=== PATIENT | male | born 1940 | race Caucasian/White ===

== ENCOUNTER 2021-12-29 06:10 | Day surgery (SDC) | payer MEDICARE, OTHER ==
[2021-12-28 13:30] LABS: BASOPHILS % (AUTO) 0.3 % (0-1); EOSINOPHILS # (AUTO) 0.3 X10'3 (0-0.9); EOSINOPHILS % (AUTO) 3.7 % (0-6); HEMATOCRIT 38.7 % (42.0-52.0); LYMPHOCYTES # (AUTO) 2.5 X10'3 (1.1-4.8); LYMPHOCYTES % (AUTO) 28.5 % (21-51); MEAN CORPUSCULAR HEMOGLOBIN 30.5 PG (27.0-31.0); MEAN CORPUSCULAR HGB CONC 33.6 g/dL (33.0-36.5); MEAN PLATELET VOLUME 7.9 FL (7.4-10.4); MONOCYTES # (AUTO) 0.6 X10'3 (0-0.9); MONOCYTES % (AUTO) 7.2 % (2-12); NEUTROPHILS # (AUTO) 5.3 X10'3 (1.8-7.7); NEUTROPHILS % (AUTO) 60.3 % (42-75); PLATELET COUNT 177 X10'3 (140-440); RED BLOOD COUNT 4.26 X10'6 (4.70-6.10); RED CELL DISTRIBUTION WIDTH 13.8 % (11.5-14.5); WHITE BLOOD COUNT 8.8 X10'3 (4.5-11.0)
[2021-12-28 13:31] LABS: APTT 25 SECONDS (22-32)
[2021-12-28 13:33] LABS: ALBUMIN 4.1 G/DL (3.4-5.0); ANION GAP 7 (8-16); BLOOD UREA NITROGEN 22 MG/DL (7-18); BUN/CREATININE RATIO 21.4 (5.4-32.0); CHLORIDE 105 MMOL/L (99-107); CREATININE 1.03 MG/DL (0.60-1.10); GLUCOSE 98 MG/DL (70-104); POTASSIUM 3.5 MMOL/L (3.5-5.1); SODIUM 140 MMOL/L (135-145); TOTAL CARBON DIOXIDE 28.4 MMOL/L (24-32); eGFR 69 ML/MIN
[~2021-12-29] VITALS: Ht 175.3 cm; Wt 81.6 kg
[2021-12-29] VITALS (11 sets, daily range): BP systolic 117–158; BP diastolic 42–87
[2021-12-29] MEDS ORDERED: diphenhydrAMINE 25mg capsule PO PRN (06:35)
[2021-12-29] MEDS ORDERED: normal saline 1,000 ML IV SCH (06:35)
[2021-12-29] MEDS ORDERED: LORazepam 0.5 MG tablet PO PRN (06:35)
[2021-12-29] MEDS ORDERED: LOSA1TAB41 PO (07:00)
[2021-12-29] MEDS ORDERED: ATEN-54 PO (07:00)
[2021-12-29] MEDS ORDERED: MULT-1085 PO (07:00)
[2021-12-29] MEDS ORDERED: FINA5TAB11 PO (07:00)
[2021-12-29] MEDS ORDERED: AMLO10TA PO (07:00)
[2021-12-29] MEDS ORDERED: ROSU20TA2 PO (07:00)
[2021-12-29] MEDS ORDERED: FLO0.4C PO (07:00)
[2021-12-29] MEDS ORDERED: OMEP20CA16 PO (07:00)
[2021-12-29] MEDS ORDERED: ASPI-10 PO (07:00)
[2021-12-29] MEDS ORDERED: B COMPLEX (07:00)
[2021-12-29] MEDS ORDERED: nitroGLYCERIN-Tridil 50MG/D5W 250 ML IV ONE (07:22)
[2021-12-29] MEDS ORDERED: verapamil 2.5 mg/ml inj IV ONE (07:22)
[2021-12-29] MEDS ORDERED: fentaNYL/PF 50MCG/1 ML 2ML syringe ONE (07:22)
[2021-12-29] MEDS ORDERED: midazolam 1 mg/ML 2ml injection ONE (07:22)
[2021-12-29] MEDS ORDERED: iohexol 350MG/ML 100ml bottle IV ONE ×2 (07:23→08:59)
[2021-12-29] MEDS ORDERED: heparin 1,000unit/ml 10ml vial 10 ML ONE (07:23)
[2021-12-29] MEDS ORDERED: LIDOcaine 1% (10mg/ml) 2ml vial ONE ×2 (07:42→08:38)
[2021-12-29] MEDS ORDERED: LIDOcaine 1% 30ml preserv. free vial ONE (08:38)
[2021-12-29] MEDS ORDERED: normal saline 1000ml 1,000 ML IV SCH (10:05)
[2021-12-29 11:38] LABS: ISTAT HGB ART 11.9 g/dl (14.0-17.9); ISTAT Hct ART 35 %PCV (42-52); ISTAT O2 SATURATION ARTERIAL 98 % (95-98); ISTAT SOURCE VEN
[2021-12-29 11:38] LABS: ISTAT Hct MIX 37 %PCV (42-52); ISTAT O2 SATURATION MIX VENOUS 66 % (60-80); ISTAT SOURCE BLNK
== END 2021-12-29 14:00 | disposition home or self-care (01) ==
LOC: SSTAY O 06:10
PROVIDERS: ATTEND Internal Medicine Cardiovascular Disease
DX: R94.39 Abnormal result of other cardiovascular function study (principal); I25.10 Atherosclerotic heart disease of native coronary artery without angina pectoris; I35.0 Nonrheumatic aortic (valve) stenosis; I48.0 Paroxysmal atrial fibrillation; E78.5 Hyperlipidemia, unspecified; I10 Essential (primary) hypertension; F17.210 Nicotine dependence, cigarettes, uncomplicated; I49.5 Sick sinus syndrome; Z79.01 Long term (current) use of anticoagulants; Z79.899 Other long term (current) drug therapy; Z98.890 Other specified postprocedural states; Z96.652 Presence of left artificial knee joint; Z80.8 Family history of malignant neoplasm of other organs or systems; Z80.6 Family history of leukemia
CPT/HCPCS: 36415; 76937; 80048; 82803; 85014; 85025; 85610; 85730; 93005; 93460; 93567; 99152; 99153; A6258; C1751; C1758; C1769; C1894; J1644; J2250; J3010; J3490; J7030; Q0163; Q9967; A4620; A6402; A6449

== ENCOUNTER 2022-11-15 07:06 | Day surgery (SDC) | payer MEDICARE, OTHER ==
[2022-11-14 14:33] LABS: BASOPHILS % (AUTO) 0.4 % (0-1); EOSINOPHILS # (AUTO) 0.2 X10'3 (0-0.9); EOSINOPHILS % (AUTO) 2.7 % (0-6); HEMATOCRIT 37.9 % (42.0-52.0); HEMOGLOBIN 12.7 g/dl (14.0-17.9); LYMPHOCYTES # (AUTO) 1.9 X10'3 (1.1-4.8); LYMPHOCYTES % (AUTO) 22.8 % (21-51); MEAN CORPUSCULAR HEMOGLOBIN 30.8 PG (27.0-31.0); MEAN CORPUSCULAR HGB CONC 33.6 g/dL (33.0-36.5); MEAN CORPUSCULAR VOLUME 91.8 FL (78-98); MEAN PLATELET VOLUME 7.9 FL (7.4-10.4); MONOCYTES # (AUTO) 0.5 X10'3 (0-0.9); MONOCYTES % (AUTO) 5.8 % (2-12); NEUTROPHILS # (AUTO) 5.8 X10'3 (1.8-7.7); NEUTROPHILS % (AUTO) 68.3 % (42-75); PLATELET COUNT 162 X10'3 (140-440); RED BLOOD COUNT 4.12 X10'6 (4.70-6.10); WHITE BLOOD COUNT 8.5 X10'3 (4.5-11.0)
[2022-11-14 14:40] LABS: ALBUMIN 3.7 G/DL (3.4-5.0); ANION GAP 8 (8-16); BLOOD UREA NITROGEN 25 MG/DL (7-18); BUN/CREATININE RATIO 19.4 (10.0-20.0); CALCIUM 9.5 MG/DL (8.5-10.1); CHLORIDE 105 MMOL/L (99-107); CREATININE 1.29 MG/DL (0.60-1.10); GLUCOSE 148 MG/DL (70-104); POTASSIUM 3.7 MMOL/L (3.5-5.1); SODIUM 141 MMOL/L (135-145); eGFR 53 ML/MIN
[2022-11-14 14:42] LABS: PROTHROMBIN TIME 10.9 SECONDS (9.0-12.0)
[2022-11-15] VITALS (10 sets, daily range): BP systolic 146–159; BP diastolic 70–85; PULSE 54–66; RESP 12–18; TEMP 97.8; O2SAT 92–98
[~2022-11-15] VITALS: Ht 175.3 cm; Wt 80.4 kg
[~2022-11-15 07:06] MED LIST: AMI200T; APIX5TAB3 PO; ATEN-54 PO; B COMPLEX; FINA5TAB11 PO; FLO0.4C PO; FURO40TA4 PO; LOSA25TA41 PO; OMEP20CA16 PO; ROSU20TA2 PO
[2022-11-15] MEDS ORDERED: normal saline 1000ml 1,000 ML IV SCH (07:10)
[2022-11-15] MEDS ORDERED: LORazepam 0.5 MG tablet PO ONE (07:10)
[2022-11-15] MEDS ORDERED: diphenhydrAMINE 25mg capsule PO ONE (07:10)
[2022-11-15] MEDS ORDERED: MIDAZolam 1mg/ml 10ml vial IV ONE (07:10)
[2022-11-15] MEDS ORDERED: atropine 0.1mg/ml 10ml syringe IV ONE (07:10)
[2022-11-15] MEDS ORDERED: amiodarone 150mg/dext, iso-os 100 ML IV ONE (07:10)
[2022-11-15] MEDS ORDERED: morphine 10mg/ml inj. IV ONE (07:10)
[2022-11-15] MEDS ORDERED: FLO0.4C PO (07:11)
[2022-11-15] MEDS ORDERED: ATEN-27 PO (07:11)
== END 2022-11-15 09:45 | disposition home or self-care (01) ==
LOC: SSTAY O 07:06
PROVIDERS: ATTEND Internal Medicine Cardiovascular Disease
DX: I48.0 Paroxysmal atrial fibrillation (principal); I35.0 Nonrheumatic aortic (valve) stenosis; I11.0 Hypertensive heart disease with heart failure; I50.21 Acute systolic (congestive) heart failure; I47.1 Supraventricular tachycardia; I25.10 Atherosclerotic heart disease of native coronary artery without angina pectoris; I49.5 Sick sinus syndrome; I42.9 Cardiomyopathy, unspecified; E78.5 Hyperlipidemia, unspecified; N40.0 Benign prostatic hyperplasia without lower urinary tract symptoms; Z79.899 Other long term (current) drug therapy; Z79.01 Long term (current) use of anticoagulants; Z96.653 Presence of artificial knee joint, bilateral; Z98.890 Other specified postprocedural states; Z87.891 Personal history of nicotine dependence
CPT/HCPCS: 36415; 80048; 85025; 85610; 92960; 93005; J2250; J2274; J7030; Q0163; A4620

== ENCOUNTER 2023-03-08 11:05 | Outpatient (CLI) | payer MEDICARE, OTHER ==
[~2023-03-08 11:05] MED LIST changes: +ATEN-27 PO; -ATEN-54 PO; -B COMPLEX
[2023-03-08 11:39] LABS: BASOPHILS % (AUTO) 0.5 % (0-1); EOSINOPHILS # (AUTO) 0.2 X10'3 (0-0.9); EOSINOPHILS % (AUTO) 2.9 % (0-6); HEMATOCRIT 33.4 % (42.0-52.0); HEMOGLOBIN 11.2 g/dl (14.0-17.9); LYMPHOCYTES # (AUTO) 1.6 X10'3 (1.1-4.8); LYMPHOCYTES % (AUTO) 20.3 % (21-51); MEAN CORPUSCULAR HEMOGLOBIN 31.4 PG (27.0-31.0); MEAN CORPUSCULAR HGB CONC 33.7 g/dL (33.0-36.5); MEAN CORPUSCULAR VOLUME 93.2 FL (78-98); MEAN PLATELET VOLUME 7.8 FL (7.4-10.4); MONOCYTES # (AUTO) 0.5 X10'3 (0-0.9); MONOCYTES % (AUTO) 6.3 % (2-12); NEUTROPHILS # (AUTO) 5.5 X10'3 (1.8-7.7); PLATELET COUNT 195 X10'3 (140-440); RED BLOOD COUNT 3.58 X10'6 (4.70-6.10); RED CELL DISTRIBUTION WIDTH 15.3 % (11.5-14.5); WHITE BLOOD COUNT 7.9 X10'3 (4.5-11.0)
[2023-03-08 11:48] LABS: APTT 29 SECONDS (22-32); PROTHROMBIN TIME 10.5 SECONDS (9.0-12.0)
[2023-03-08 11:57] LABS: ALANINE AMINOTRANSFERASE 34 U/L (12-78); ALBUMIN 3.9 G/DL (3.4-5.0); ALBUMIN/GLOBULIN RATIO 1.2 (1.1-1.5); ALKALINE PHOSPHATASE 92 IU/L (46-116); ANION GAP 8 (8-16); ASPARTATE AMINO TRANSFERASE 25 U/L (10-37); BILIRUBIN,TOTAL 0.5 MG/DL (0.1-1.0); BLOOD UREA NITROGEN 26 MG/DL (7-18); BUN/CREATININE RATIO 20.5 (10.0-20.0); CALCIUM 9.6 MG/DL (8.5-10.1); CHLORIDE 105 MMOL/L (99-107); CREATININE 1.27 MG/DL (0.60-1.10); GLUCOSE 101 MG/DL (70-104); POTASSIUM 3.5 MMOL/L (3.5-5.1); PRO BRAIN NATRIURETIC PEPTIDE 184 PG/ML (0-450); SODIUM 138 MMOL/L (135-145); TOTAL CARBON DIOXIDE 25.4 MMOL/L (24-32); TOTAL PROTEIN 7.2 G/DL (6.4-8.2); eGFR 54 ML/MIN
[2023-03-08] MEDS ORDERED: IODIXANOL 320 MG/ML INFUS..BTL 100ML IV ONE (12:12)
== END 2023-03-08 23:59 | disposition home or self-care (01) ==
LOC: RAD 11:05
PROVIDERS: ATTEND Internal Medicine Cardiovascular Disease
DX: Z01.818 Encounter for other preprocedural examination (principal); I65.23 Occlusion and stenosis of bilateral carotid arteries; N40.0 Benign prostatic hyperplasia without lower urinary tract symptoms; N32.89 Other specified disorders of bladder; I70.0 Atherosclerosis of aorta; I77.4 Celiac artery compression syndrome; J92.9 Pleural plaque without asbestos; N62 Hypertrophy of breast; I35.0 Nonrheumatic aortic (valve) stenosis; Z87.891 Personal history of nicotine dependence; Z79.899 Other long term (current) drug therapy
CPT/HCPCS: 36415; 71046; 71275; 74175; 75572; 80053; 83880; 85025; 85610; 85730; 93880; 94010; 94727; 94729; J3490; Q9967

== ENCOUNTER 2023-04-13 05:58 | Inpatient (IN) | payer MEDICARE, OTHER ==
[2023-04-06 11:27] LABS: BASOPHILS # (AUTO) 0.1 X10'3 (0-0.2); BASOPHILS % (AUTO) 0.8 % (0-1); EOSINOPHILS # (AUTO) 0.2 X10'3 (0-0.9); EOSINOPHILS % (AUTO) 2.3 % (0-6); LYMPHOCYTES # (AUTO) 1.7 X10'3 (1.1-4.8); LYMPHOCYTES % (AUTO) 19.8 % (21-51); MEAN CORPUSCULAR HEMOGLOBIN 31.4 PG (27.0-31.0); MEAN CORPUSCULAR HGB CONC 33.3 g/dL (33.0-36.5); MEAN CORPUSCULAR VOLUME 94.3 FL (78-98); MEAN PLATELET VOLUME 7.8 FL (7.4-10.4); MONOCYTES # (AUTO) 0.6 X10'3 (0-0.9); MONOCYTES % (AUTO) 7.4 % (2-12); NEUTROPHILS # (AUTO) 5.8 X10'3 (1.8-7.7); NEUTROPHILS % (AUTO) 69.7 % (42-75); PRE OP HEMATOCRIT 36.2 % (42.0-52.0); PRE OP HEMOGLOBIN 12.1 g/dL (14.0-17.9); PRE OP PLATELET COUNT 185 X10'3 (140-440); PRE OP WHITE BLOOD COUNT 8.4 10'3 (4.8-10.8); RED BLOOD COUNT 3.84 X10'6 (4.70-6.10); RED CELL DISTRIBUTION WIDTH 13.8 % (11.5-14.5)
[2023-04-06 11:38] LABS: PRE OP PROTIME 10.7 SECONDS (9.0-12.0)
[2023-04-06 11:39] LABS: BILIRUBIN,URINE NEGATIVE (Neg); CLARITY,URINE CLEAR (Clear); COLOR,URINE YELLOW (Yellow); GLUCOSE, URINE NEGATIVE (Neg); KETONES,URINE NEGATIVE (Neg); LEUKOCYTE ESTERASE ,URINE NEGATIVE (Neg); NITRITES, URINE NEGATIVE (Neg); OCCULT BLOOD,URINE NEGATIVE (Neg); PH,URINE 5.5 (4.8-8.0); PROTEIN,URINE NEGATIVE (Neg); UROBILINOGEN,URINE 0.2 E.U/dL (0.2-1.0)
[2023-04-06 11:46] LABS: UA COLLECTION TYPE NON-SPECIFIED
[2023-04-06 11:47] LABS: ALBUMIN 3.6 G/DL (3.4-5.0); ALKALINE PHOSPHATASE 91 IU/L (46-116); BLOOD UREA NITROGEN 20 MG/DL (7-18); BUN/CREATININE RATIO 16.9 (10.0-20.0); CALCIUM 9.3 MG/DL (8.5-10.1); CHLORIDE 105 MMOL/L (99-107); CREATININE 1.18 MG/DL (0.60-1.10); PRE OP ALT 32 U/L (30-65); PRE OP ANION GAP 10 (8-16); PRE OP AST 23 U/L (10-37); PRE OP BILIRUB, TOTAL 0.4 MG/DL (0.0-1.0); PRE OP GLUCOSE 115 MG/DL (70-104); PRE OP POTASSIUM 3.5 MMOL/L (3.4-5.1); PRE OP SODIUM 140 MMOL/L (135-145); PRO BRAIN NATRIURETIC PEPTIDE 237 PG/ML (0-450); TOTAL CARBON DIOXIDE 25.5 MMOL/L (24-32); TOTAL PROTEIN 7.3 G/DL (6.4-8.2); eGFR 59 ML/MIN
[2023-04-13] VITALS (26 sets, daily range): BP systolic 86–160; BP diastolic 39–75; PULSE 59–71; RESP 11–19; TEMP 97.9–99; O2SAT 88–100
[~2023-04-13] VITALS: Ht 172.7 cm; Wt 82.1 kg
[~2023-04-13 05:58] MED LIST changes: -AMI200T; +AMI200T PO; +AMLO5TAB18 PO; +APIX2.5T PO; -APIX5TAB3 PO; -ATEN-27 PO; +DOCUMENT DATE & TIME OF BETA-BLOCKER PO ONE; +FERR325T28 PO; +FLUT16SP BOTHNARES; +KETO10DR3 EACHEYE; +LOSA100T58 PO; -LOSA25TA41 PO; +aspirin 325mg tablet PO ONE; +cefazolin 2gm/D5W 100mL 100 ML IV ONE; +famotidine 20mg tablet PO ONE; +ondansetron/PF 4mg/2ml inj IV ONE; +ringers solution, lacted 1,000 ML IV SCH; +vancomycin 1,500 MG in NS 300ml IV soln IV ONE
[2023-04-13] MEDS ORDERED: protamine sulfate 10mg/ml inj. ONE (06:49)
[2023-04-13] MEDS ORDERED: LIDOcaine 1% (10mg/ml) 2ml vial ONE ×2 (08:27→09:28)
[2023-04-13] MEDS ORDERED: protamine sulf. 10mg/ml inj. IV ONE (08:30)
[2023-04-13] MEDS ORDERED: LIDOcaine 1% 30ml preserv. free vial ONE ×2 (08:41→08:56)
[2023-04-13] MEDS ORDERED: iohexol 350MG/ML 100ml bottle IV ONE (08:41)
[2023-04-13] MEDS ORDERED: heparin 1,000 UNITS/NS 500ml 1,500 ML ONE (08:41)
[2023-04-13] MEDS ORDERED: fentaNYL/PF 50MCG/1 ML 2ML syringe ONE (08:55)
[2023-04-13] MEDS ORDERED: MIDAZolam 1 MG/ML 5ML VIAL ONE (08:56)
[2023-04-13] MEDS ORDERED: heparin 1,000unit/ml 10ml vial 10 ML ONE ×2 (09:14→09:57)
[2023-04-13] MEDS ORDERED: propofol inj 20 ML IV ONE (09:14)
[2023-04-13] MEDS: nitroPRUSSIDE (NIPRIDE) (200MCG/ML) 100ML Drip IV SCH ×2 (10:06→22:02)
[2023-04-13] MEDS: phenylephrine inj 50 MG in normal saline 250ml IV solN IV SCH (10:06)
[2023-04-13] MEDS ORDERED: potassium CL 10mEq/100ml bag 100 ML IV PRN (10:15)
[2023-04-13] MEDS ORDERED: potassium Cl 40MEQ/270ML bag 250 ML IV PRN (10:15)
[2023-04-13] MEDS ORDERED: potassium Cl 20 mEq SR tablet PO PRN (10:15)
[2023-04-13] MEDS ORDERED: proCHLORperazine 10 MG/2 ml inj IV PRN (10:15)
[2023-04-13] MEDS ORDERED: potassium Cl 20mEq/100mL bag 100 ML IV PRN (10:15)
[2023-04-13] MEDS ORDERED: magnesium 4gm in 100ml NS 100 ML IV PRN (10:15)
[2023-04-13] MEDS ORDERED: acetaminophen 325mg tablet PO PRN (10:15)
[2023-04-13] MEDS ORDERED: magnesium 2GM in 50ml NS 50 ML IV PRN (10:15)
[2023-04-13] MEDS ORDERED: diphenhydrAMINE 25mg capsule PO PRN (10:15)
[2023-04-13] MEDS: normal saline 1000ml 1,000 ML IV SCH ×2 (10:15→20:01)
[2023-04-13] MEDS ORDERED: ondansetron/PF 4mg/2ml inj IV PRN (10:15)
[2023-04-13] MEDS ORDERED: potassium Cl 40MEQ/1/2NS 520ml 520 ML IV PRN (10:15)
[2023-04-13] MEDS ORDERED: docusate sod 100mg capsule PO PRN (10:15)
[2023-04-13] MEDS ORDERED: hydrALAZINE 20mg/ml inj. IV PRN (10:15)
[2023-04-13] MEDS ORDERED: labetalol 20mg/4ml (5mg/ml) syringe IV PRN (10:15)
[2023-04-13] MEDS ORDERED: ALPRAZolam 0.25mg tablet PO PRN (10:15)
[2023-04-13] MEDS ORDERED: pantoprazole 40mg Tablet.DR PO PRN (10:15)
[2023-04-13] MEDS: HYDROcodone/acetaminophen 5mg/325mg tablet PO PRN (11:34)
[2023-04-13] MEDS ORDERED: fluticasone nasal spray 16GM bottle NS PRN (12:30)
[2023-04-13] MEDS ORDERED: KETOTIFEN FUMARATE EACHEYE PRN (12:40)
[2023-04-13] MEDS: ceFAZolin 1GM/D5W- ADD-VANTAGE 50 ML IV SCH (15:53)
[2023-04-13] MEDS: sod chloride 0.9% 10ml flush syringe IV SCH (16:33)
[2023-04-13] MEDS: tamsulosin 0.4mg capsule PO SCH (19:48)
[2023-04-13] MEDS: apixaban 2.5mg tablet PO SCH (19:48)
[2023-04-13] MEDS: vancomycin/NS 1 GM ADD-VANTAGE 250 ML IV SCH (19:48)
[2023-04-14] MEDS: ceFAZolin 1GM/D5W- ADD-VANTAGE 50 ML IV SCH ×2 (00:55→09:20)
[2023-04-14 02:00] VITALS: BP 163/73; PULSE 69; RESP 20; TEMP 98; O2SAT 91
[2023-04-14] MEDS: phenylephrine inj 50 MG in normal saline 250ml IV solN IV SCH (02:10)
[2023-04-14] MEDS: HYDROcodone/acetaminophen 5mg/325mg tablet PO PRN (03:19)
[2023-04-14 06:00] VITALS: BP 137/107; PULSE 70; RESP 15; TEMP 98.1; O2SAT 99
[2023-04-14 06:59] LABS: BASOPHILS % (AUTO) 0.3 % (0-1); EOSINOPHILS # (AUTO) 0.2 X10'3 (0-0.9); EOSINOPHILS % (AUTO) 1.6 % (0-6); HEMATOCRIT 33.1 % (42.0-52.0); HEMOGLOBIN 11.2 g/dl (14.0-17.9); LYMPHOCYTES # (AUTO) 1.3 X10'3 (1.1-4.8); LYMPHOCYTES % (AUTO) 12.3 % (21-51); MEAN CORPUSCULAR HEMOGLOBIN 31.9 PG (27.0-31.0); MEAN CORPUSCULAR HGB CONC 33.8 g/dL (33.0-36.5); MEAN CORPUSCULAR VOLUME 94.3 FL (78-98); MEAN PLATELET VOLUME 8.2 FL (7.4-10.4); MONOCYTES # (AUTO) 0.8 X10'3 (0-0.9); NEUTROPHILS % (AUTO) 77.8 % (42-75); PLATELET COUNT 123 X10'3 (140-440); RED BLOOD COUNT 3.51 X10'6 (4.70-6.10); RED CELL DISTRIBUTION WIDTH 13.4 % (11.5-14.5); WHITE BLOOD COUNT 10.3 X10'3 (4.5-11.0)
[2023-04-14 07:26] LABS: ALANINE AMINOTRANSFERASE 21 U/L (12-78); ALBUMIN/GLOBULIN RATIO 0.9 (1.1-1.5); ALKALINE PHOSPHATASE 75 IU/L (46-116); ANION GAP 6 (8-16); ASPARTATE AMINO TRANSFERASE 23 U/L (10-37); BILIRUBIN,TOTAL 0.5 MG/DL (0.1-1.0); BLOOD UREA NITROGEN 19 MG/DL (7-18); BUN/CREATININE RATIO 19.6 (10.0-20.0); CALCIUM 9.2 MG/DL (8.5-10.1); CHLORIDE 107 MMOL/L (99-107); CREATININE 0.97 MG/DL (0.60-1.10); GLUCOSE 106 MG/DL (70-104); MAGNESIUM 2.1 MG/DL (1.5-2.4); POTASSIUM 3.7 MMOL/L (3.5-5.1); PRO BRAIN NATRIURETIC PEPTIDE 291 PG/ML (0-450); SODIUM 140 MMOL/L (135-145); TOTAL CARBON DIOXIDE 27.1 MMOL/L (24-32); TOTAL PROTEIN 6.3 G/DL (6.4-8.2); eCRCL 57 ML/MIN; eGFR 74 ML/MIN
[2023-04-14] MEDS: apixaban 2.5mg tablet PO SCH (07:57)
[2023-04-14] MEDS: tamsulosin 0.4mg capsule PO SCH (07:57)
[2023-04-14] MEDS ORDERED: amLODIPine 5mg tablet PO SCH (08:00)
[2023-04-14] MEDS ORDERED: atorvastatin 20mg tablet PO SCH (08:00)
[2023-04-14] MEDS ORDERED: losartan 50mg tablet PO SCH (08:00)
[2023-04-14] MEDS ORDERED: ferrous sulfate 325mg tablet PO SCH (08:00)
[2023-04-14] MEDS ORDERED: finasteride 5mg tablet PO SCH (08:00)
[2023-04-14] MEDS ORDERED: furosemide 40mg tablet PO SCH (08:00)
[2023-04-14] MEDS ORDERED: pantoprazole 40mg Tablet.DR PO SCH (08:00)
[2023-04-14] MEDS ORDERED: amiodarone 200mg tablet PO SCH (08:00)
[2023-04-14] MEDS: vancomycin/NS 1 GM ADD-VANTAGE 250 ML IV SCH (08:01)
[2023-04-14] MEDS: normal saline 1000ml 1,000 ML IV SCH (08:02)
[2023-04-14] MEDS: sod chloride 0.9% 10ml flush syringe IV SCH ×2 (08:02)
[2023-04-14 08:50] VITALS: RESP 16; O2SAT 99
[2023-04-14 11:00] VITALS: BP 134/66; PULSE 64; RESP 12; TEMP 98.6; O2SAT 95
== END 2023-04-14 17:02 | disposition home or self-care (01) | DRG 267 ==
LOC: PAS IN 05:58 → PCU 3S 11:52
PROVIDERS: ADMIT Student in an Organized Health Care Education/Training Program; ATTEND Student in an Organized Health Care Education/Training Program
PROC: B41G1ZZ Fluoroscopy of Left Lower Extremity Arteries using Low Osmolar Contrast (ICD-10-PCS; 2023-04-13)
PROC: B41F1ZZ Fluoroscopy of Right Lower Extremity Arteries using Low Osmolar Contrast (ICD-10-PCS; 2023-04-13)
PROC: 03HY32Z Insertion of Monitoring Device into Upper Artery, Percutaneous Approach (ICD-10-PCS; 2023-04-13)
PROC: B3101ZZ Fluoroscopy of Thoracic Aorta using Low Osmolar Contrast (ICD-10-PCS; 2023-04-13)
PROC: 02RF38N Replacement of Aortic Valve with Zooplastic Tissue, using Rapid Deployment Technique, Percutaneous Approach (ICD-10-PCS; principal; 2023-04-13 08:53)
DX: I35.0 Nonrheumatic aortic (valve) stenosis (principal); Z00.6 Encounter for examination for normal comparison and control in clinical research program; I50.22 Chronic systolic (congestive) heart failure; I48.91 Unspecified atrial fibrillation; I11.0 Hypertensive heart disease with heart failure; E78.5 Hyperlipidemia, unspecified
CPT/HCPCS: 33361; 36415; 71045; 71046; 76937; 80053; 81003; 82948; 83735; 83880; 85025; 85347; 85610; 85730; 86885; 86900; 86901; 86920; 87081; 93005; 93308; A4615; A4618; A6258; A6449; C1756; C1760; C1769; C1894; G0378; J0360; J0690; J1644; J2250; J2370; J2405; J2704; J2720; J3010; J3370; J3490; J7030; J7040; J7050; J7120; Q0163; Q9967